=== PATIENT | female | born 1995 | race Caucasian/White ===

== ENCOUNTER → 2023-04-17 23:00 | Outpatient (CLI) | payer SELFPAY | PROVIDERS: PCP Nurse Practitioner; Visit Provider Nurse Practitioner | DX: R30.0 Dysuria (principal) | CPT/HCPCS: 87086 ==

== ENCOUNTER 2024-01-07 18:39 | Outpatient (CLI) | payer OTHER, SELFPAY ==
[2024-01-08 09:01] LABS: Cannabinoid Screen,Urine Positive ng/ml (<50); Cocaine Screen,Urine Negative ng/ml (<300)
[2024-01-08 09:02] LABS: Methadone Screen,Urine Negative ng/ml (<300)
[2024-01-08 09:03] LABS: Opiate Screen,Urine Negative ng/ml (<300); Phencyclidine Screen,Urine Negative ng/ml (<25)
[2024-01-08 09:10] LABS: Barbiturates Screen,Urine Negative ng/ml (<200)
[2024-01-08 09:11] LABS: Benzodiazepines Screen,Urine Negative ng/ml (<200)
[2024-01-08 09:40] LABS: Amphetamine/Metha Screen,Urine Negative ng/ml (<1000)
== END 2024-01-07 23:59 ==
LOC: LAB.DROPOF 18:40
PROVIDERS: PCP Nurse Practitioner Acute Care; Visit Provider Nurse Practitioner Acute Care
DX: F33.1 Major depressive disorder, recurrent, moderate (principal); Z79.899 Other long term (current) drug therapy
CPT/HCPCS: 80307

== ENCOUNTER 2024-01-12 18:18 | Outpatient (CLI) | payer OTHER, SELFPAY ==
[2024-01-12 18:34] LABS: Chloride 104 mmol/L (98-107); Potassium 4.9 mmoL/L (3.5-5.1); Sodium 134 mmol/L (136-145)
[2024-01-12 18:37] LABS: Anion Gap 11.9 mEq/L (5-15); Blood Urea Nitrogen 13 mg/dl (7-17); Calcium 9.9 mg/dl (8.4-10.2); Carbon Dioxide 23 mmol/L (22.0-30.0); Estimated Glomerular Filt Rate 99 ml/min (>60); GFR (African American) 120 ML/MIN (>60); Glucose 55 mg/dl (74-100)
[2024-01-14 11:13] LABS: Lithium (Eskalith(R)) 0.6 mmol/L (0.5-1.2)
== END 2024-01-12 23:59 ==
LOC: LAB.DROPOF 18:19
PROVIDERS: PCP Nurse Practitioner Acute Care; Visit Provider Nurse Practitioner Acute Care
DX: F43.12 Post-traumatic stress disorder, chronic (principal); Z79.899 Other long term (current) drug therapy
CPT/HCPCS: 80048; 80178

== ENCOUNTER 2024-02-13 18:46 | Outpatient (CLI) | payer OTHER, SELFPAY ==
[2024-02-13 19:21] LABS: Anion Gap 15.7 mEq/L (5-15); Blood Urea Nitrogen 10 mg/dl (7-17); Calcium 9.9 mg/dl (8.4-10.2); Carbon Dioxide 25 mmol/L (22.0-30.0); Chloride 103 mmol/L (98-107); Estimated Glomerular Filt Rate 85 ml/min (>60); GFR (African American) 103 ML/MIN (>60); Glucose 53 mg/dl (74-100); Potassium 4.7 mmoL/L (3.5-5.1); Sodium 139 mmol/L (136-145)
[2024-02-15 09:05] LABS: Lithium (Eskalith(R)) 0.8 mmol/L (0.5-1.2)
== END 2024-02-13 23:59 ==
LOC: LAB.DROPOF 18:46
PROVIDERS: PCP Nurse Practitioner Acute Care; Visit Provider Nurse Practitioner Acute Care
DX: Z79.899 Other long term (current) drug therapy (principal)
CPT/HCPCS: 80048; 80178

== ENCOUNTER 2024-03-02 18:00 | Outpatient (CLI) | payer BC, SELFPAY ==
[2024-03-02 18:46] LABS: Anion Gap 11.3 mEq/L (5-15); Blood Urea Nitrogen 12 mg/dl (7-17); Calcium 9.7 mg/dl (8.4-10.2); Carbon Dioxide 26 mmol/L (22.0-30.0); Chloride 104 mmol/L (98-107); Estimated Glomerular Filt Rate 85 ml/min (>60); GFR (African American) 103 ML/MIN (>60); Glucose 77 mg/dl (74-100); Potassium 4.3 mmoL/L (3.5-5.1); Sodium 137 mmol/L (136-145)
[2024-03-02 19:17] LABS: Thyroid Stimulating Hormone 0.82 uIU/mL (0.465-4.68)
[2024-03-02 22:48] LABS: Free T4 (Free Thyroxine) 0.93 ng/dl (0.78-2.19)
[2024-03-04 10:42] LABS: Lithium (Eskalith(R)) 0.8 mmol/L (0.5-1.2)
== END 2024-03-02 23:59 | disposition home or self-care (01) ==
LOC: LAB.DROPOF 03-03 08:28
PROVIDERS: PCP Nurse Practitioner Acute Care; Visit Provider Nurse Practitioner Acute Care
DX: F31.64 Bipolar disorder, current episode mixed, severe, with psychotic features (principal); Z79.899 Other long term (current) drug therapy
CPT/HCPCS: 80048; 80178; 84439; 84443

== ENCOUNTER 2024-04-26 18:00 | Outpatient (CLI) | payer BC, SELFPAY ==
[2024-04-26 19:15] LABS: Anion Gap 13.4 mEq/L (5-15); Blood Urea Nitrogen 9 mg/dl (7-17); Calcium 9.9 mg/dl (8.4-10.2); Carbon Dioxide 24 mmol/L (22.0-30.0); Chloride 105 mmol/L (98-107); Estimated Glomerular Filt Rate 99 ml/min (>60); GFR (African American) 120 ML/MIN (>60); Glucose 84 mg/dl (74-100); Potassium 4.4 mmoL/L (3.5-5.1); Sodium 138 mmol/L (136-145)
[2024-04-26 19:34] LABS: Free T4 (Free Thyroxine) 1.05 ng/dl (0.78-2.19)
[2024-04-28 08:56] LABS: Lithium (Eskalith(R)) 0.6 mmol/L (0.5-1.2)
== END 2024-04-26 23:59 | disposition home or self-care (01) ==
LOC: LAB.DROPOF 04-27 08:59
PROVIDERS: PCP Nurse Practitioner Acute Care; Visit Provider Nurse Practitioner Acute Care
DX: F31.64 Bipolar disorder, current episode mixed, severe, with psychotic features (principal); F41.1 Generalized anxiety disorder; F41.0 Panic disorder [episodic paroxysmal anxiety]
CPT/HCPCS: 80048; 80178; 84439; 84443

== ENCOUNTER 2024-05-17 10:29 | Outpatient (CLI) | payer BC, SELFPAY ==
[2024-05-18 11:01] LABS: HIV (1&2) Antibody Rapid NON REACTIVE
[2024-05-19 05:10] LABS: HBsAg Screen Negative (Negative); HCV Ab Non Reactive (Non Reactive); Hep A Ab, IGM Negative (Negative); Hep B Core Ab, IgM Negative (Negative)
[2024-05-19 13:33] LABS: Rapid Plasma Reagin Ab Titer Non Reactive titer (NonRea<1:1)
[2024-05-19 21:39] LABS: Neisseria gonorrhoeae, NAA Negative (Negative)
[2024-05-21 19:37] LABS: HSV-1 DNA Negative (Negative); HSV-2 DNA Negative (Negative)
[2024-06-28 11:47] LABS: Trichomonas Vaginalis, NAA Negative
== END 2024-05-17 23:59 | disposition home or self-care (01) ==
LOC: LAB.DROPOF 05-18 10:29
PROVIDERS: PCP Nurse Practitioner; Visit Provider Nurse Practitioner
DX: Z11.3 Encounter for screening for infections with a predominantly sexual mode of transmission (principal)
CPT/HCPCS: 80074; 86593; 87491; 87529; 87591; 87661

== ENCOUNTER 2024-06-28 09:50 | Outpatient (CLI) | payer BC, SELFPAY ==
[2024-06-28 19:03] LABS: Anion Gap 11.6 mEq/L (5-15); Blood Urea Nitrogen 12 mg/dl (7-17); Calcium 9.6 mg/dl (8.4-10.2); Carbon Dioxide 23 mmol/L (22.0-30.0); Chloride 107 mmol/L (98-107); Estimated Glomerular Filt Rate 99 ml/min (>60); GFR (African American) 120 ML/MIN (>60); Potassium 4.6 mmoL/L (3.5-5.1); Sodium 137 mmol/L (136-145)
[2024-06-28 19:24] LABS: Glucose 37 mg/dl (74-100)
[2024-06-30 14:09] LABS: Lithium (Eskalith(R)) 0.9 mmol/L (0.5-1.2)
== END 2024-06-28 23:59 | disposition home or self-care (01) ==
LOC: LAB.DROPOF 06-29 09:13
PROVIDERS: PCP Nurse Practitioner; Visit Provider Nurse Practitioner Acute Care
DX: F31.64 Bipolar disorder, current episode mixed, severe, with psychotic features; Z79.899 Other long term (current) drug therapy
CPT/HCPCS: 80048; 80178

== ENCOUNTER 2024-08-24 09:30 | Outpatient (CLI) | payer BC, SELFPAY ==
[2024-08-24 19:23] LABS: Chloride 106 mmol/L (98-107); Sodium 139 mmol/L (136-145)
[2024-08-24 19:24] LABS: Potassium 4.3 mmoL/L (3.5-5.1)
[2024-08-24 19:26] LABS: Anion Gap 11.3 mEq/L (5-15); Blood Urea Nitrogen 11 mg/dl (7-17); Carbon Dioxide 26 mmol/L (22.0-30.0); Estimated Glomerular Filt Rate 85 ml/min (>60); GFR (African American) 103 ML/MIN (>60)
[2024-08-24 19:27] LABS: Calcium 9.5 mg/dl (8.4-10.2)
[2024-08-24 19:48] LABS: Glucose 39 mg/dl (74-100)
[2024-08-26 08:23] LABS: Lithium (Eskalith(R)) 0.6 mmol/L (0.5-1.2)
== END 2024-08-24 23:59 | disposition home or self-care (01) ==
LOC: LAB.DROPOF 08-26 11:41
PROVIDERS: PCP Nurse Practitioner Acute Care; Visit Provider Nurse Practitioner Acute Care
DX: F31.64 Bipolar disorder, current episode mixed, severe, with psychotic features (principal)
CPT/HCPCS: 80048; 80178

== ENCOUNTER 2024-09-15 14:55 | Outpatient (CLI) | payer BC, SELFPAY ==
[2024-09-17 05:12] LABS: HCV Ab Non Reactive (Non Reactive); Hepatitis B Surface Antigen Negative (Negative)
[2024-09-17 11:15] LABS: Rapid Plasma Reagin Ab Titer Non Reactive titer (NonRea<1:1)
== END 2024-09-15 23:59 | disposition home or self-care (01) ==
LOC: LAB.DROPOF 09-16 11:25
PROVIDERS: PCP Obstetrics & Gynecology; Visit Provider Obstetrics & Gynecology
DX: Z01.419 Encounter for gynecological examination (general) (routine) without abnormal findings (principal)
CPT/HCPCS: 86593; 86803; 87340

== ENCOUNTER 2024-09-22 09:20 | Outpatient (CLI) | payer BC, SELFPAY ==
[2024-09-22 19:32] LABS: Alanine Aminotransferase 18 U/L (12-78); Albumin Level 4.1 g/dl (3.5-5.0); Albumin/Globulin Ratio 1.8 (1.1-1.8); Alkaline Phosphatase 68 U/L (38-126); Anion Gap 10.4 mEq/L (5-15); Aspartate Amino Transferase 20 U/L (14-36); Bilirubin,Total 0.5 mg/dl (0.2-1.3); Blood Urea Nitrogen 10 mg/dl (7-17); Calcium 9.3 mg/dl (8.4-10.2); Carbon Dioxide 24 mmol/L (22.0-30.0); Chloride 106 mmol/L (98-107); Estimated Glomerular Filt Rate 118 ml/min (>60); GFR (African American) 143 ML/MIN (>60); Globulin 2.3 g/dL (1.3-3.2); Glucose 82 mg/dl (74-100); Potassium 4.4 mmoL/L (3.5-5.1); Sodium 136 mmol/L (136-145); Total Protein,Serum 6.4 g/dl (6.3-8.2)
[2024-09-22 19:40] LABS: Free T4 (Free Thyroxine) 1.05 ng/dl (0.78-2.19)
[2024-09-22 19:52] LABS: Thyroid Stimulating Hormone 1.31 uIU/mL (0.465-4.68)
== END 2024-09-22 23:59 | disposition home or self-care (01) ==
LOC: LAB.DROPOF 09-23 14:06
PROVIDERS: PCP Nurse Practitioner; Visit Provider Nurse Practitioner
DX: E16.2 Hypoglycemia, unspecified (principal)
CPT/HCPCS: 80053; 83036; 84439; 84443

== ENCOUNTER 2024-10-26 08:52 | Outpatient (CLI) | payer BC, SELFPAY ==
[2024-10-26 18:36] LABS: Anion Gap 14.5 mEq/L (5-15); Blood Urea Nitrogen 12 mg/dl (7-17); Calcium 9.3 mg/dl (8.4-10.2); Carbon Dioxide 22 mmol/L (22.0-30.0); Chloride 107 mmol/L (98-107); Estimated Glomerular Filt Rate 99 ml/min (>60); GFR (African American) 120 ML/MIN (>60); Glucose 66 mg/dl (74-100); Potassium 4.5 mmoL/L (3.5-5.1); Sodium 139 mmol/L (136-145)
[2024-10-28 08:39] LABS: Lithium (Eskalith(R)) 0.7 mmol/L (0.5-1.2)
== END 2024-10-26 23:59 | disposition home or self-care (01) ==
LOC: LAB.DROPOF 10-27 12:36
PROVIDERS: PCP Nurse Practitioner Acute Care; Visit Provider Nurse Practitioner Acute Care
DX: F33.1 Major depressive disorder, recurrent, moderate (principal); F41.1 Generalized anxiety disorder; F41.0 Panic disorder [episodic paroxysmal anxiety]
CPT/HCPCS: 80048; 80178

== ENCOUNTER 2024-11-12 14:01 | Emergency (ER) | payer SELFPAY ==
[2024-11-12 14:03] VITALS: BP 139/86; PULSE 77; RESP 23; TEMP 37.1; O2SAT 100
--- NOTE | 2024-11-12 14:25 | PC.NURSE ---
pt laying in bed at this time. Doctor Isak just went in room to talk to pt.
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
[2024-11-12] MEDS: IBUPROFEN 400 MG TABLET 800 MG PO (14:52)
[2024-11-12] MEDS: CYCLOBENZAPRINE 10MG TABLET 5 MG PO (14:53)
[2024-11-12 15:07] VITALS: BP 111/67; PULSE 68; RESP 16; TEMP 36.7; O2SAT 100
== END 2024-11-12 15:08 | disposition home or self-care (01) ==
PROVIDERS: Emergency Provider Student in an Organized Health Care Education/Training Program
DX: Z04.1 Encounter for examination and observation following transport accident (principal); S16.1XXA Strain of muscle, fascia and tendon at neck level, initial encounter; S46.912A Strain of unspecified muscle, fascia and tendon at shoulder and upper arm level, left arm, initial encounter; M54.2 Cervicalgia; M79.602 Pain in left arm; R20.2 Paresthesia of skin; V89.2XXA Person injured in unspecified motor-vehicle accident, traffic, initial encounter; Y93.89 Activity, other specified; Y92.410 Unspecified street and highway as the place of occurrence of the external cause
CPT/HCPCS: 99283

== ENCOUNTER 2024-12-20 12:30 | Outpatient (CLI) | payer OTHER, SELFPAY ==
[2024-12-20 18:11] LABS: Coronavirus 19, PCR Not Detected (NotDetected); Human Rhinovirus Not Detected (NotDetected); Influenza A, PCR Not Detected (NotDetected); Influenza B, PCR Not Detected (NotDetected); Respiratory Syncytial Virus Not Detected (NotDetected)
== END 2024-12-20 23:59 | disposition home or self-care (01) ==
LOC: LAB.DROPOF 12-21 08:51
PROVIDERS: PCP Nurse Practitioner; Visit Provider Nurse Practitioner
DX: J06.9 Acute upper respiratory infection, unspecified (principal)
CPT/HCPCS: 87631

== ENCOUNTER 2024-12-23 13:33 | Outpatient (CLI) | payer OTHER, SELFPAY ==
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
== END 2024-12-23 23:59 | disposition home or self-care (01) ==
PROVIDERS: PCP Nurse Practitioner; Visit Provider Nurse Practitioner
DX: M54.50 Low back pain, unspecified (principal); M62.830 Muscle spasm of back
CPT/HCPCS: 72100

== ENCOUNTER 2025-02-07 19:42 | Outpatient (CLI) | payer OTHER, SELFPAY ==
[2025-02-07 22:46] LABS: Albumin Level 4.6 g/dl (3.5-5.0); Chloride 104 mmol/L (98-107)
[2025-02-07 22:47] LABS: Potassium 4.7 mmoL/L (3.5-5.1); Sodium 136 mmol/L (136-145)
[2025-02-07 22:49] LABS: Alanine Aminotransferase 33 U/L (12-78); Anion Gap 13.7 mEq/L (5-15); Aspartate Amino Transferase 32 U/L (14-36); Blood Urea Nitrogen 15 mg/dl (7-17); Carbon Dioxide 23 mmol/L (22.0-30.0); Estimated Glomerular Filt Rate 98 ml/min (>60); GFR (African American) 119 ML/MIN (>60)
[2025-02-07 22:50] LABS: Albumin/Globulin Ratio 2.3 (1.1-1.8); Alkaline Phosphatase 91 U/L (38-126); Bilirubin,Total 0.3 mg/dl (0.2-1.3); Calcium 9.6 mg/dl (8.4-10.2); Total Protein,Serum 6.6 g/dl (6.3-8.2)
[2025-02-07 23:05] LABS: Free T4 (Free Thyroxine) 1.05 ng/dl (0.78-2.19)
[2025-02-07 23:12] LABS: Glucose 37 mg/dl (74-100)
[2025-02-07 23:20] LABS: Thyroid Stimulating Hormone 1.98 uIU/mL (0.465-4.68)
[2025-02-09 08:13] LABS: Lithium (Eskalith(R)) 0.5 mmol/L (0.5-1.2)
== END 2025-02-07 23:59 | disposition home or self-care (01) ==
LOC: LAB 19:43
PROVIDERS: PCP Nurse Practitioner Acute Care; Visit Provider Nurse Practitioner Acute Care
DX: F33.1 Major depressive disorder, recurrent, moderate (principal)
CPT/HCPCS: 80053; 80178; 84439; 84443

== ENCOUNTER 2025-03-07 11:06 | Outpatient (CLI) | payer OTHER, SELFPAY ==
[2025-03-07 18:43] LABS: Hemoglobin A1C 4.9 % (4.0-6.0)
[2025-03-07 19:38] LABS: Albumin Level 4.4 g/dl (3.5-5.0); Chloride 107 mmol/L (98-107); Potassium 4.8 mmoL/L (3.5-5.1); Sodium 136 mmol/L (136-145)
[2025-03-07 19:41] LABS: Alanine Aminotransferase 20 U/L (12-78); Albumin/Globulin Ratio 1.8 (1.1-1.8); Alkaline Phosphatase 92 U/L (38-126); Anion Gap 14.8 mEq/L (5-15); Aspartate Amino Transferase 24 U/L (14-36); Bilirubin,Total 0.3 mg/dl (0.2-1.3); Blood Urea Nitrogen 10 mg/dl (7-17); Calcium 9.7 mg/dl (8.4-10.2); Carbon Dioxide 19 mmol/L (22.0-30.0); Estimated Glomerular Filt Rate 98 ml/min (>60); GFR (African American) 119 ML/MIN (>60); Globulin 2.4 g/dL (1.3-3.2); Glucose 100 mg/dl (74-100); Total Protein,Serum 6.8 g/dl (6.3-8.2)
== END 2025-03-07 23:59 | disposition home or self-care (01) ==
LOC: LAB.DROPOF 03-08 10:41
PROVIDERS: PCP Nurse Practitioner; Visit Provider Nurse Practitioner
DX: E16.2 Hypoglycemia, unspecified (principal)
CPT/HCPCS: 80053; 83036

== ENCOUNTER 2025-07-12 09:50 | Outpatient (CLI) | payer OTHER, SELFPAY ==
[2025-07-12 14:58] LABS: Hematocrit 37.1 % (37.0-47.0); Hemoglobin 12.4 g/dL (12.2-16.2); Immature Granulocytes % 0.5 %; Mean Corpuscular HGB Conc 33.4 g/dL (31.8-35.4); Mean Corpuscular Hemoglobin 29.1 pg (27.0-31.2); Mean Corpuscular Volume 87.1 fl (81-99); Nucleated Red Blood Cells % 0 %; Platelet Count 288 K/mm3 (142-424); Red Blood Count 4.26 M/mm3 (4.20-5.40); Red Cell Distribution Width-SD 40.3 fL; White Blood Count 7.6 K/mm3 (4.8-10.8)
[2025-07-12 15:07] LABS: Albumin Level 4.3 g/dl (3.5-5.0); Chloride 111 mmol/L (98-107); Potassium 4.0 mmoL/L (3.5-5.1); Sodium 139 mmol/L (136-145)
[2025-07-12 15:09] LABS: Blood Urea Nitrogen 14 mg/dl (7-17); Creatinine,Serum 0.60 mg/dl (0.52-1.04)
[2025-07-12 15:10] LABS: Alanine Aminotransferase 24 U/L (12-78); Albumin/Globulin Ratio 1.7 (1.1-1.8); Alkaline Phosphatase 91 U/L (38-126); Anion Gap 9.0 mEq/L (5-15); Aspartate Amino Transferase 30 U/L (14-36); Bilirubin,Total 0.3 mg/dl (0.2-1.3); Calcium 9.5 mg/dl (8.4-10.2); Carbon Dioxide 23 mmol/L (22.0-30.0); Cholesterol 181 mg/dl (140-200); Estimated Glomerular Filt Rate 117 ml/min (>60); GFR (African American) 142 ML/MIN (>60); Globulin 2.5 g/dL (1.3-3.2); Glucose 85 mg/dl (74-100); HDL Cholesterol 36 mg/dl (40-60); Total Protein,Serum 6.8 g/dl (6.3-8.2); Triglycerides 228 mg/dl (30-150)
[2025-07-12 15:28] LABS: T4 (Thyroxine) 8.1 ug/dl (5.53-11.0)
[2025-07-12 15:39] LABS: Thyroid Stimulating Hormone 0.59 uIU/mL (0.465-4.68)
[2025-07-12 16:32] LABS: Hemoglobin A1C 5.1 % (4.0-6.0)
== END 2025-07-12 23:59 | disposition home or self-care (01) ==
LOC: LAB.DROPOF 07-14 13:00
PROVIDERS: PCP Nurse Practitioner Acute Care; Visit Provider Nurse Practitioner Acute Care
DX: F31.64 Bipolar disorder, current episode mixed, severe, with psychotic features (principal); F41.1 Generalized anxiety disorder; F41.0 Panic disorder [episodic paroxysmal anxiety]; E16.2 Hypoglycemia, unspecified; Z79.899 Other long term (current) drug therapy
CPT/HCPCS: 80053; 80061; 80178; 83036; 84436; 84443; 85025

== ENCOUNTER 2025-08-31 07:46 | Outpatient (CLI) | payer OTHER, SELFPAY ==
--- NOTE | 2025-08-31 08:00 | MR_ITS ---
FINAL REPORT TECHNIQUE: Multiplanar MR, without and with gadolinium enhancement CLINICAL HISTORY: headache, loss of balance, speech difficulty FINDINGS: Diffusion sequences show no signal abnormality to indicate acute infarct. No mass, hemorrhage or edema is seen. Ventricles are normal. Major vascular flow voids are intact. There are mucous retention cysts in the bilateral maxillary sinuses, larger on the right. Following contrast administration, no mass or abnormal enhancement is seen. IMPRESSION: Unremarkable MR evaluation the brain with contrast Reviewed, Interpreted and Dictated by Abril Latham MD Transcribed by Thu Juarez Authenticated and . [facility]
[2025-08-31] MEDS: SODIUM CHLORIDE 0.9% 10ML SYR (RAD ONLY) 10 ML IV (08:38)
[2025-08-31] MEDS: GADOTERIDOL INJ 20ML SYRINGE 20 ML IV (08:38)
== END 2025-08-31 23:59 | disposition home or self-care (01) ==
LOC: RAD 07:48
PROVIDERS: PCP Nurse Practitioner; Visit Provider Nurse Practitioner
DX: R51.9 Headache, unspecified (principal); R26.89 Other abnormalities of gait and mobility; R47.9 Unspecified speech disturbances
CPT/HCPCS: 70553; A9576